=== PATIENT | male | born 2005 | race Caucasian/White ===

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

== ENCOUNTER 2024-04-22 17:52 | Emergency (ER) | payer BC ==
[~2024-04-22] VITALS: Ht 170.2 cm; Wt 59.0 kg
[~2024-04-22 17:52] MED LIST: ULTRAM 50MG50 MG PO
[2024-04-22 19:09] VITALS: PULSE 55; RESP 18; TEMP 98.6; O2SAT 100
[2024-04-22 19:40] LABS: INFLUENZAE A&B ANTIGEN (RAPID) NEGATIVE (NEGATIVE); RESPIRATORY SYNC. VIRUS NEGATIVE (NEGATIVE)
== END 2024-04-22 20:46 | disposition home or self-care (01) ==
LOC: ER 18:04
DX: R50.9 Fever, unspecified (principal); B34.9 Viral infection, unspecified; R51.9 Headache, unspecified; Z11.52 Encounter for screening for COVID-19
CPT/HCPCS: 87400; 87420; 99283; U0002